=== PATIENT | female | born 1975 | race Caucasian/White ===

== ENCOUNTER 2018-03-14 18:00 | Observation (INO) | payer MEDICAID ==
[2018-03-14] MEDS ORDERED: Nitroglycerin 2% Oint 1 GM UD Packet TOP ONE (18:10)
[2018-03-14] MEDS ORDERED: Sodium Chloride 0.9% 5 ML Syringe FLUSH PRN ×2 (18:10→18:49)
[2018-03-14] MEDS ORDERED: Aspirin 81 MG Tab.Chew PO ONE (18:10)
--- NOTE | 2018-03-14 18:12 | EDM.PDOC ---
ED HPI GENERAL MEDICAL PROBLEM - General Chief Complaint: Cardiovascular Problem Stated Complaint: CHEST PAIN Time Seen by Provider: 03/14/18 18:09 Source of Information: Reports: Patient, EMS History Limitations: Reports: No Limitations - History of Present Illness INITIAL COMMENTS - FREE TEXT/NARRATIVE: 43 YO WF presents to ER by EMS with left sided chest pain with radiation to the back of her neck and left arm. Pt reports she has had episodic chest pain for approximately 4 years but has never had an evaluation by PCP. Pt reports approximately 1 hour ago she developed these symptoms prompting her to call EMS. Pt denies shortness of breath, dizziness, diaphoresis. Pt with associated nausea without vomiting. Pt is currently chest pain free. Pt states she smokes 1/2 PPD of tobacco. Pt denies any hormone replacement therapy or control. Pt unsure of family history of CAD. Onset: Today Onset Date: 03/14/18 Onset Time: 17:00 Location: Reports: Chest Quality: Reports: Ache Severity: Mild Improves with: Reports: None Worsens with: Reports: None Associated Symptoms: Reports: Chest Pain, Nausea/Vomiting. Denies: Fever/Chills , Shortness of Breath, Syncope Left Chest Pain Score (Numeric/FACES): 2 - Related Data Allergies Allergy/AdvReac Type Severity Reaction Status Date / Time No Known Allergies Allergy Verified 03/14/18 18:12 Home Meds: Home Meds Ibuprofen 200 mg PO ASDIRECTED PRN 03/14/18 [History] Naproxen 500 mg PO ASDIRECTED PRN 03/14/18 [History] ED ROS GENERAL - Review of Systems Review Of Systems: See Below Constitutional: Reports: No Symptoms HEENT: Reports: No Symptoms Respiratory: Reports: No Symptoms Cardiovascular: Reports: Chest Pain Endocrine: Reports: No Symptoms GI/Abdominal: Reports: Nausea : Reports: No Symptoms Musculoskeletal: Reports: No Symptoms Skin: Reports: No Symptoms Neurological: Reports: No Symptoms Psychiatric: Reports: No Symptoms Hematologic/Lymphatic: Reports: No Symptoms ED EXAM, GENERAL - Physical Exam Exam: See Below Exam Limited By: No Limitations General Appearance: Alert, WD/WN, No Apparent Distress Head: Atraumatic, Normocephalic Neck: Normal Inspection, Supple, Non-Tender, Full Range of Motion Respiratory/Chest: No Respiratory Distress, Lungs Clear, Normal Breath Sounds, No Accessory Muscle Use, Chest Non-Tender Cardiovascular: Normal Peripheral Pulses, Regular Rate, Rhythm, No Edema, No Gallop, No JVD, No Murmur, No Rub GI/Abdominal: Normal Bowel Sounds, Soft, Non-Tender, No Organomegaly, No Distention, No Abnormal Bruit, No Mass Back Exam: Normal Inspection, Full Range of Motion, NT Extremities: Normal Inspection, Normal Range of Motion, Non-Tender, Normal Capillary Refill, No Pedal Edema Neurological: Alert, Oriented, CN II-XII Intact, Normal Cognition, Normal Gait, Normal Reflexes, No Motor/Sensory Deficits Psychiatric: Normal Affect, Normal Mood Skin Exam: Warm, Dry, Intact, Normal Color, No Rash Lymphatic: No Adenopathy EKG INTERPRETATION EKG Date: 03/14/18 Time: 18:11 Rhythm: NSR Rate (Beats/Min): 90 Christopher: Normal P-Wave: Present QRS: Normal ST-T: Normal QT: Normal Comparison: NA - No Prior EKG Course - Vital Signs Last Recorded V/S: Last Vital Signs Temp 36.8 C 03/14/18 18:17 Pulse 87 03/14/18 18:38 Resp 16 03/14/18 18:38 BP 114/41 L 03/14/18 18:38 Pulse Ox 97 03/14/18 18:38 - Orders/Labs/Meds Orders: Active Orders 24 hr Category Date Time Status Cardiac Monitoring [RC] . DIRECTED Care 03/14/18 18:10 Active EKG Documentation Completion [RC] ASDIRECTED Care 03/14/18 18:10 Active Oxygen Therapy, ED [RC] ASDIRECTED Care 03/14/18 18:10 Active Peripheral IV Care [RC] . DIRECTED Care 03/14/18 18:10 Active Chest 1V Frontal [CR] Stat Exams 03/14/18 18:10 Taken Sodium Chloride 0.9% [Syrex Flush] Med 03/14/18 18:10 Active 5 ml FLUSH Q8HR PRN Peripheral IV Insertion Adult [OM.PC] Routine Oth 03/14/18 18:10 Ordered EKG 12 Lead [EK] Routine Ther 03/14/18 18:10 Ordered Medication Orders Sodium Chloride (Syrex Flush) 5 ml FLUSH Q8HR PRN PRN Reason: Keep Vein Open Labs: Laboratory Tests 03/14/18 03/14/18 03/14/18 Range/Units 18:05 18:05 18:05 WBC 11.3 H (5.0-10.0) 10^3/uL RBC 5.06 (3.80-5.50) 10^6/uL Hgb 15.3 (12.0-16.0) g/dL Hct 44.6 (37.0-47.0) % MCV 88.1 (82.0-92.0) fL MCH 30.3 (27.0-31.0) pg MCHC 34.4 (32.0-36.0) g/dL RDW 12.8 (11.5-14.5) % Plt Count 233 (150-300) 10^3/uL MPV 9.0 (7.4-10.4) fL Neut % (Auto) 49.3 L (50.0-70.0) % Lymph % (Auto) 40.0 (20.0-40.0) % Parker % (Auto) 6.4 (2.0-8.0) % Eos % (Auto) 3.6 H (1.0-3.0) % Baso % (Auto) 0.7 (0.0-1.0) % Neut # (Auto) 5.6 (2.5-7.0) 10^3/uL Lymph # (Auto) 4.5 H (1.0-4.0) 10^3/uL Parker # (Auto) 0.7 (0.1-0.8) 10^3/uL Eos # (Auto) 0.4 H (0.1-0.3) 10^3/uL Baso # (Auto) 0.1 (0.0-0.1) 10^3/uL PT 9.1 (8.9-11.4) SEC INR 0.9 (0.9-1.1) APTT 23.9 (20.8-31.2) SEC Sodium 141 (136-145) mmol/L Potassium 3.8 (3.3-5.3) mmol/L Chloride 105 (98-115) mmol/L Carbon Dioxide 21.3 (21.0-32.0) mmol/L BUN 16 (6-25) mg/dL Creatinine 0.96 (0.51-1.17) mg/dL Est Cr Clr Drug Dosing 66.59 mL/min Estimated GFR (MDRD) > 60 mL/min Glucose 117 H (70-110) mg/dL Calcium 9.2 (8.7-10.3) mg/dL Total Bilirubin 0.3 (0.2-1.0) mg/dL AST 21 (15-37) U/L ALT 24 (12-78) U/L Alkaline Phosphatase 61 (46-116) IU/L Creatine Kinase 116 (26-276) U/L CK-MB (CK-2) 0.80 (0.00-4.30) ng/mL Troponin I < 0.04 (0.00-0.070) ng/mL Total Protein 7.6 (6.4-8.2) g/dL Albumin 4.28 (3.00-4.80) g/dL Meds: Medications Generic Name Dose Route Start Last Admin Trade Name Freq PRN Reason Stop Dose Admin Sodium Chloride 5 ml 03/14/18 18:10 Syrex Flush FLUSH Q8HR PRN Keep Vein Open Discontinued Medications Generic Name Dose Route Start Last Admin Trade Name Freq PRN Reason Stop Dose Admin Aspirin 324 mg 03/14/18 18:10 03/14/18 18:37 Aspirin PO 03/14/18 18:11 Not Given ONETIME ONE Nitroglycerin 1 gm 03/14/18 18:10 03/14/18 18:18 Nitro-Bid 2% TOP 03/14/18 18:11 1 gm ONETIME ONE Administration Departure - Departure Time of Disposition: 18:48 Disposition: Refer to Observation Condition: Good Clinical Impression: Chest pain Qualifiers: Chest pain type: unspecified Qualified Code(s): R07.9 - Chest pain, unspecified Forms: ED Department Discharge - My Orders Last 24 Hours: My Active Orders 03/14/18 18:10 Cardiac Monitoring [RC] . DIRECTED EKG Documentation Completion [RC] ASDIRECTED Oxygen Therapy, ED [RC] ASDIRECTED Peripheral IV Care [RC] . DIRECTED Chest 1V Frontal [CR] Stat Sodium Chloride 0.9% [Syrex Flush] 5 ml FLUSH Q8HR PRN Peripheral IV Insertion Adult [OM.PC] Routine EKG 12 Lead [EK] Routine - Assessment/Plan Last 24 Hours: My Active Orders 03/14/18 18:10 Cardiac Monitoring [RC] . DIRECTED EKG Documentation Completion [RC] ASDIRECTED Oxygen Therapy, ED [RC] ASDIRECTED Peripheral IV Care [RC] . DIRECTED Chest 1V Frontal [CR] Stat Sodium Chloride 0.9% [Syrex Flush] 5 ml FLUSH Q8HR PRN Peripheral IV Insertion Adult [OM.PC] Routine EKG 12 Lead [EK] Routine Assessment:: 1. Chest pain Plan: 1. admit for obs- Aleshia Marcelino 2. nitro/ASA 3. serial trop I Q6 x 3 4. supportive care
[2018-03-14 18:42] LABS: CHLORIDE,CL 105 mmol/L (98-115); SODIUM,NA 141 mmol/L (136-145)
[2018-03-14] MEDS ORDERED: Ondansetron 4 MG/2 ML SDV IV PRN (18:49)
[2018-03-14] MEDS ORDERED: Ibuprofen 600 MG Tab PO PRN (18:49)
[2018-03-14] MEDS ORDERED: Nitroglycerin 2% Oint 1 GM UD Packet TOP PRN (18:52)
[2018-03-14] MEDS: Nicotine 14 MG/24 Hr Patch TRDERM SCH (19:30)
[2018-03-14] MEDS ORDERED: Atropine 0.1 MG/ML 10 ML Syringe IVPUSH PRN (20:46)
[2018-03-14] MEDS ORDERED: Nitroglycerin 0.4 MG Tab.SL SL PRN (20:46)
[2018-03-14] MEDS ORDERED: Lidocaine 2% 100 MG/5 ML Syringe IVPUSH PRN (20:46)
[2018-03-14] MEDS ORDERED: EPINEPHrine 1:10,000 1 MG/10 ML Syringe IVPUSH PRN (20:46)
[2018-03-15] MEDS: Nicotine 14 MG/24 Hr Patch TRDERM SCH (08:17)
[2018-03-15] MEDS ORDERED: Aspirin 325 MG Tab.EC PO SCH (09:00)
--- NOTE | 2018-03-15 09:42 | PCM.HP ---
H&P History of Present Illness - General Date of Service: 03/15/18 Admit Problem/Dx: Admission Diagnosis/Problem Admission Diagnosis/Problem Chest pain Source of Information: Patient, EMS Notes Reviewed, RN History Limitations: Reports: No Limitations - History of Present Illness Initial Comments - Free Text/Narative: This 43-year-old female was admitted overnight through the ED via EMS due to left-sided chest pain which radiated to the back of her neck and down her left arm. Patient stated last night she was eating supper and she noticed her left- sided chest pain. She states this has happened multiple times over the past 4 years however normally and only lasts up to 2 minutes and then resolve spontaneously however this time it seemed to be quite progressive. She notified EMS, after glycerin was given in route which made her blood pressure rise. She had no shortness of breath diaphoresis or lightheadedness did become slightly nauseated without vomiting. When she arrived in the ED she no longer had chest pain. He was admitted into observation overnight was given aspirin and nitroglycerin and telemetry monitoring. 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 She states her last lipids were approximately 2-3 years ago and they were normal. Left Chest Pain Score (Numeric/FACES): 2 - Related Data Allergies/Adverse Reactions: Allergies Allergy/AdvReac Type Severity Reaction Status Date / Time No Known Allergies Allergy Verified 03/14/18 18:12 Home Medications: Home Meds Ibuprofen 200 mg PO ASDIRECTED PRN 03/14/18 [History] Naproxen 500 mg PO ASDIRECTED PRN 03/14/18 [History] Diclofenac Sodium [Voltaren] 100 gm TP Q6H PRN #1 gel..gram. 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) Other OB/BYN History: 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 Musculoskeletal History: Reports: Osteoarthritis Endocrine/Metabolic History: Reports: Obesity/BMI 30+ Hematologic History: Reports: Anemia, Blood Transfusion(s) - Infectious Disease History Infectious Disease History: Reports: Chicken Pox, Influenza, Shingles - Past Surgical History GI Surgical History: Reports: Cholecystectomy Social & Family History - Family History HEENT: Reports: None Cardiac: Reports: None Respiratory: Reports: None GI: Reports: None : Reports: None OBGYN: Reports: None Musculoskeletal: Reports: None Neurological: Reports: None Psychiatric: Reports: None Endocrine/Metabolic: Reports: None Hematologic: Reports: None Immunologic: Reports: None Dermatologic: Reports: None Oncologic: Reports: None, Colon (Father 3 years ago colon cancer), Other ( See Below) - Tobacco Use Smoking Status *Q: Former Smoker Years of Tobacco use: 30 Packs/Tins Daily: 0.5 Used Tobacco, but Quit: No Second Hand Smoke Exposure: Yes - Caffeine Use Caffeine Use: Reports: Coffee, Soda, Tea Caffeine Use Comment: uses quite a bit - Recreational Drug Use Recreational Drug Use: No H&P Review of Systems - Review of Systems: Review Of Systems: See Below General: Reports: No Symptoms HEENT: Reports: No Symptoms Pulmonary: Reports: No Symptoms Cardiovascular: Reports: No Symptoms Gastrointestinal: Reports: No Symptoms Genitourinary: Reports: No Symptoms Musculoskeletal: Reports: Neck Pain, Shoulder Pain, Arm Pain, Muscle Stiffness. Denies: Hand Pain, Leg Pain, Muscle Pain Skin: Reports: No Symptoms Psychiatric: Reports: No Symptoms Neurological: Reports: Tingling. Denies: Confusion, Pre-Existing Deficit, Trouble Speaking, Weakness, Change in Speech Hematologic/Lymphatic: Reports: No Symptoms Immunologic: Reports: No Symptoms Exam - Exam Exam: See Below - Vital Signs Vital Signs: Last Vital Signs Temp 98.6 F 03/15/18 06:00 Pulse 75 03/15/18 06:00 Resp 18 03/15/18 06:00 BP 91/51 L 03/15/18 06:00 Pulse Ox 95 03/15/18 06:00 Weight: 185 lb - Exam Quality Assessment: No: Supplemental Oxygen General: Alert, Oriented, 4 HEENT: PERRLA, Hearing Intact, Mucosa Moist & [place], Nares Patent, Normal Nasal Septum, Posterior Pharynx Clear, Conjunctiva Clear, EOMI, EACs Clear, TMs Clear Neck: Supple, Trachea Midline, 2 Lungs: Clear to Auscultation, Normal Respiratory Effort Cardiovascular: Regular Rate, Regular Rhythm GI/Abdominal Exam: Soft (Female) Exam: Deferred Back Exam: Muscle Spasm (: Muscle spasm), Paraspinal Tenderness. No: CVA Tenderness (L), CVA Tenderness (R) Extremities: No Pedal Edema Peripheral Pulses: 2+: Radial (L), Radial (R) Skin: Warm, Dry, Intact Neurological: Normal Speech, Sensation Intact. No: Focal Deficit Neuro Extensive - Mental Status: Alert, Oriented x3, Normal Mood/Affect, Normal Cognition Neuro Extensive - Motor, Sensory, Reflexes: CN II-XII Intact Psychiatric: Alert, Normal Mood. No: Anxious - Patient Data Lab Results Last 24 hrs: Laboratory Results - last 24 hr 03/14/18 03/14/18 03/14/18 Range/Units 18:05 18:05 18:05 WBC 11.3 H (5.0-10.0) 10^3/uL RBC 5.06 (3.80-5.50) 10^6/uL Hgb 15.3 (12.0-16.0) g/dL Hct 44.6 (37.0-47.0) % MCV 88.1 (82.0-92.0) fL MCH 30.3 (27.0-31.0) pg MCHC 34.4 (32.0-36.0) g/dL RDW 12.8 (11.5-14.5) % Plt Count 233 (150-300) 10^3/uL MPV 9.0 (7.4-10.4) fL Neut % (Auto) 49.3 L (50.0-70.0) % Lymph % (Auto) 40.0 (20.0-40.0) % [place] % (Auto) 6.4 (2.0-8.0) % Eos % (Auto) 3.6 H (1.0-3.0) % Baso % (Auto) 0.7 (0.0-1.0) % Neut # (Auto) 5.6 (2.5-7.0) 10^3/uL Lymph # (Auto) 4.5 H (1.0-4.0) 10^3/uL [place] # (Auto) 0.7 (0.1-0.8) 10^3/uL Eos # (Auto) 0.4 H (0.1-0.3) 10^3/uL Baso # (Auto) 0.1 (0.0-0.1) 10^3/uL PT 9.1 (8.9-11.4) SEC INR 0.9 (0.9-1.1) APTT 23.9 (20.8-31.2) SEC Sodium 141 (136-145) mmol/L Potassium 3.8 (3.3-5.3) mmol/L Chloride 105 (98-115) mmol/L Carbon Dioxide 21.3 (21.0-32.0) mmol/L BUN 16 (6-25) mg/dL Creatinine 0.96 (0.51-1.17) mg/dL Est Cr Clr Drug Dosing 66.59 mL/min Estimated GFR (MDRD) > 60 mL/min Glucose 117 H (70-110) mg/dL Calcium 9.2 (8.7-10.3) mg/dL Total Bilirubin 0.3 (0.2-1.0) mg/dL AST 21 (15-37) U/L ALT 24 (12-78) U/L Alkaline Phosphatase 61 (46-116) IU/L Creatine Kinase 116 (26-276) U/L CK-MB (CK-2) 0.80 (0.00-4.30) ng/mL Troponin I < 0.04 (0.00-0.070) ng/mL Total Protein 7.6 (6.4-8.2) g/dL Albumin 4.28 (3.00-4.80) g/dL 03/15/18 03/15/18 Range/Units 00:05 07:05 WBC 7.9 (5.0-10.0) 10^3/uL RBC 4.73 (3.80-5.50) 10^6/uL Hgb 13.8 D (12.0-16.0) g/dL Hct 40.8 (37.0-47.0) % MCV 86.1 (82.0-92.0) fL MCH 29.2 (27.0-31.0) pg MCHC 33.9 (32.0-36.0) g/dL RDW 13.0 (11.5-14.5) % Plt Count 204 (150-300) 10^3/uL MPV 9.0 (7.4-10.4) fL Neut % (Auto) 55.7 (50.0-70.0) % Lymph % (Auto) 30.9 (20.0-40.0) % [place] % (Auto) 8.7 H (2.0-8.0) % Eos % (Auto) 4.1 H (1.0-3.0) % Baso % (Auto) 0.6 (0.0-1.0) % Neut # (Auto) 4.5 (2.5-7.0) 10^3/uL Lymph # (Auto) 2.4 (1.0-4.0) 10^3/uL [place] # (Auto) 0.7 (0.1-0.8) 10^3/uL Eos # (Auto) 0.3 (0.1-0.3) 10^3/uL Baso # (Auto) 0.0 (0.0-0.1) 10^3/uL PT (8.9-11.4) SEC INR (0.9-1.1) APTT (20.8-31.2) SEC Sodium (136-145) mmol/L Potassium (3.3-5.3) mmol/L Chloride (98-115) mmol/L Carbon Dioxide (21.0-32.0) mmol/L BUN (6-25) mg/dL Creatinine (0.51-1.17) mg/dL Est Cr Clr Drug Dosing mL/min Estimated GFR (MDRD) mL/min Glucose (70-110) mg/dL Calcium (8.7-10.3) mg/dL Total Bilirubin (0.2-1.0) mg/dL AST (15-37) U/L ALT (12-78) U/L Alkaline Phosphatase (46-116) IU/L Creatine Kinase (26-276) U/L CK-MB (CK-2) (0.00-4.30) ng/mL Troponin I < 0.04 (0.00-0.070) ng/mL Total Protein (6.4-8.2) g/dL Albumin (3.00-4.80) g/dL Result Diagrams: 03/15/18 07:05 03/14/18 18:05 EKG INTERPRETATION Rhythm: NSR P-Wave: Present QRS: Normal ST-T: Normal QT: Normal Comparison: NA - No Prior EKG Problem List Initiated/Reviewed/Updated: Yes Orders Last 24hrs: Active Orders 24 hr Category Date Time Status Patient Status [ADT] Routine ADT 03/14/18 18:50 Ordered Bedrest Bathroom Privileges [RC] ASDIRECTED Care 03/14/18 18:49 Active Cardiac Monitoring [RC] 2300,0300,0700,1100,1500,1900 Care 03/14/18 18:10 Active Oxygen Therapy [RC] PRN Care 03/14/18 18:50 Active Pulse Oximetry [RC] CONTINUOUS Care 03/14/18 18:50 Active VTE/DVT Education [RC] PER UNIT ROUTINE Care 03/14/18 18:50 Active Vital Signs [RC] Q4H Care 03/14/18 18:50 Active 2 Gram Sodium Diet [DIET] Diet 03/14/18 Dinner Active BASIC METABOLIC PANEL,BMP [CHEM] AM Lab 03/15/18 07:05 Received MAGNESIUM [CHEM] AM Lab 03/15/18 07:05 Received TROPONIN I [CHEM] AM Lab 03/15/18 07:05 Received Aspirin [Ecotrin] Med 03/15/18 09:00 Active 325 mg PO DAILY Atropine [Atropine 0.1 MG/ML] Med 03/14/18 20:46 Active 0 mg IVPUSH ASDIRECTED PRN EPINEPHrine [EPINEPHrine 1:10,000] Med 03/14/18 20:46 Active 1 mg IVPUSH ASDIRECTED PRN Ibuprofen [Motrin] Med 03/14/18 18:49 Active 600 mg PO Q6H PRN Lidocaine 2% [Xylocaine 2%] Med 03/14/18 20:46 Active 0 mg IVPUSH ASDIRECTED PRN Nicotine [Habitrol] Med 03/14/18 19:00 Active 14 mg TRDERM DAILY Nitroglycerin [Nitro-Bid 2%] Med 03/14/18 18:52 Active 1 gm TOP Q6H PRN Nitroglycerin [Nitrostat] Med 03/14/18 20:46 Active 0.4 mg SL ASDIRECTED PRN Ondansetron [Zofran] Med 03/14/18 18:49 Active 4 mg IV Q6H PRN Sodium Chloride 0.9% [Syrex Flush] Med 03/14/18 18:49 Active 5 ml FLUSH Q8HR PRN Saline Lock Insert [OM.PC] Routine Oth 03/14/18 18:49 Ordered Resuscitation Status Routine Resus Stat 03/14/18 18:49 Ordered EKG 12 Lead [EK] Routine Ther 03/14/18 18:10 Stop Req Medication Orders Aspirin (Ecotrin) 325 mg PO DAILY [facility] Last Admin: 03/15/18 08:17 Dose: 325 mg Atropine Sulfate (Atropine 0.1 Mg/Ml) 0 mg IVPUSH ASDIRECTED PRN PRN Reason: Heart Epinephrine HCl (Epinephrine 1:10,000) 1 mg IVPUSH ASDIRECTED PRN PRN Reason: Heart Ibuprofen (Motrin) 600 mg PO Q6H PRN PRN Reason: Pain (mild 1-3) Lidocaine HCl (Xylocaine 2%) 0 mg IVPUSH ASDIRECTED PRN PRN Reason: Heart Nicotine (Habitrol) 14 mg TRDERM DAILY [facility] Last Admin: 03/15/18 08:17 Dose: Not Given Admin: 03/14/18 19:30 Dose: Not Given Nitroglycerin (Nitro-Bid 2%) 1 gm TOP Q6H PRN PRN Reason: Chest Pain Nitroglycerin (Nitrostat) 0.4 mg SL ASDIRECTED PRN PRN Reason: Heart Ondansetron HCl (Zofran) 4 mg IV Q6H PRN PRN Reason: Nausea/Vomiting Sodium Chloride (Syrex Flush) 5 ml FLUSH Q8HR PRN PRN Reason: Keep Vein Open Assessment/Plan Comment:: HISTORY OF PRESENT ILLNESS This 43-year-old female was admitted overnight through the ED via EMS due to left-sided chest pain which radiated to the back of her neck and down her left arm. Patient stated last night she was eating supper and she noticed her left- sided chest pain. She states this has happened multiple times over the past 4 years however normally and only lasts up to 2 minutes and then resolve spontaneously however this time it seemed to be quite progressive. She notified EMS, after glycerin was given in route which made her blood pressure rise. She had no shortness of breath diaphoresis or lightheadedness did become slightly nauseated without vomiting. When she arrived in the ED she no longer had chest pain. He was admitted into observation overnight was given aspirin and nitroglycerin and telemetry monitoring. 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 She states her last lipids were approximately 2-3 years ago and they were normal. Does have a history of significant osteoarthritis in her neck , lumbar with degenerative disc disease history, knees etc. She does smoke one half pack per day Pertinent ED workup EKG NSR no ST morphology rate 90 Initial troponins normal Chest pain-free BP 98/49 White count 11.3 Chest x-ray clear Primary impression Rule out myocardial infarction, this has been ruled out Likely cervical pathology Tobacco dependency Modifiable risk factors Obesity Smoking cessation Disposition, patient will be discharged from the hospital and will follow-up as outpatient, will need cervical neck series, not to return to work until follow- up, report any further pain, tramadol and NSAIDs for now low dose.
[2018-03-15 14:34] LABS: CHLORIDE,CL 109
[2018-03-15 14:36] LABS: SODIUM,NA 138
--- NOTE | 2018-03-16 12:49 | DISCH ---
The patient was admitted to observation last night 03/14/2018, discharged from observation today 03/15/2018. FINAL DIAGNOSES: Rule out myocardial infarction, this has been ruled out; cervical neck pathology; tobacco dependency; obesity; significant osteoarthritis, multiple joints; and degenerative disk disease. HISTORY: This is a 43-year-old female, she was admitted overnight through the ED via EMS due to left-sided chest pain which radiated to the back of her neck and down her left arm. She stated last night she was eating supper and she had noticed a left-sided chest pain. This has happened multiple times over the past four years. Never really been worked up, however, normally she says her pain only lasts 2 minutes and resolved spontaneously. However, last night, it seemed to be quite progressive and this does not resolve. She notified EMS. Nitroglycerin was given en route, which made her blood pressure rise. By the time she got to the ED, she was chest pain free. She had no shortness of breath. No diaphoresis. No lightheadedness. However, she did become slightly nauseated. No vomiting. She was admitted overnight observation, was given aspirin, nitroglycerin. court recording monitor. She normally doctors with [facility] in [place]. Her last lipids per report were about two to three years ago, and they were normal. She does smoke about half a pack cigarettes per day. She is a [employer]. 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 Pertinent ED workup include EKG which showed normal sinus rhythm, no ST morphology. Heart rate 90. Initial troponins were negative. She was chest pain free. Blood pressure about 100 systolically. White count was 11.3, no neutrophilia, no bandemia. Her chest x-ray was clear. HOSPITAL COURSE: Hospital course was brief and terse without event. She was found on the floor this morning, but she did not fall. She stated she has lot of neck and back pain history, so she was stretching. Troponins were monitored x2. They were normal. Her white count was now 7.9, no neutrophilia. INR 0.9. Electrolytes were normal. No liver enzymes elevation. Normal troponin x2. She had no ectopy throughout the night. No chest pain. She is obese. Temperature on discharge 98.6, blood pressure 91/51, heart rate 75, and O2 sats 95% on room air. PHYSICAL EXAMINATION: GENERAL: On discharge, the patient is alert and oriented. No cervical neck muscles tensed, does have spasm there. Does have some slight tingling down her left arm, however, no weakness. Mild midline paraspinal tenderness, lower lumbar. Negative SLR. Slightly tender around AC. Negative Rios. Cervical neck; left and right rotation normal, however, slightly tender. LUNGS: Clear to auscultation. CV: S1, S2. No S3. PMI second intercostal space, midclavicular line. EXTREMITIES: Lower extremities; no edema. Anterior chest wall noticed nitroglycerin patch. This was removed. VITAL SIGNS: Blood pressure 90, however asymptomatic. No dizziness. MEDICATION CHANGES AND ADJUSTMENTS: Voltaren gel q.6 hours p.r.n. cervical neck, tramadol 50 mg every 6 hours p.r.n. for pain. She can continue with NSAIDs orally. No aspirin given. DISPOSITION: The patient will be discharged from the hospital. She will follow up as outpatient. Recommend cervical neck series. Doubtful, she will need other cardiac workup. She is not to return to work until followup, low-dose tramadol was given for her along with NSAID cream. Touched with her about modifiable risk factors including obesity and smoking cessation. Likely will need cervical neck series, lipids, and thyroid assessment. The patient is to report any further ongoing chest pain, likely cervical pathology. This will need to be followed up after her cervical neck series. /[id number]/MODL
== END 2018-03-15 10:30 | disposition home or self-care (01) ==
LOC: KA.ED 18:00 → KA.MS 18:49
PROVIDERS: ADMIT Physician Assistant Medical; ATTEND Physician Assistant Medical
DX: R07.9 Chest pain, unspecified (principal); E66.9 Obesity, unspecified; M15.3 Secondary multiple arthritis; F17.200 Nicotine dependence, unspecified, uncomplicated; Z90.710 Acquired absence of both cervix and uterus; Z68.30 Body mass index [BMI] 30.0-30.9, adult; Z90.49 Acquired absence of other specified parts of digestive tract
CPT/HCPCS: 36415; 71045; 80048; 80053; 82550; 82553; 83735; 84484; 85025; 85610; 85730; 93005; 99285; A9270-GY; G0378

== ENCOUNTER 2019-01-21 11:40 | Emergency (ER) | payer BC, MEDICAID ==
--- NOTE | 2019-01-21 13:08 | CR ---
[id number] RAD/RAD Shoulder Left 2V Min EXAM: LEFT SHOULDER 3 VIEWS INDICATION: Shoulder pain. COMPARISON: None. DISCUSSION: Mild acromioclavicular and glenohumeral osteoarthritis. No acute fracture, dislocation or other osseous abnormality is identified. IMPRESSION: 1. Mild osteoarthritis. Rome East MD 01/21/19 [id number] Thank you for allowing us to participate in the care of your patient.
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
[2019-01-21] MEDS: Ketorolac 60 MG/2 ML SDV IM ONE (13:20)
[2019-01-21] MEDS: Cyclobenzaprine 10 MG Tab PO ONE (13:21)
== END 2019-01-21 13:35 | disposition home or self-care (01) ==
LOC: KA.ED 11:40
DX: S46.812A Strain of other muscles, fascia and tendons at shoulder and upper arm level, left arm, initial encounter (principal); F17.210 Nicotine dependence, cigarettes, uncomplicated; Y99.0 Civilian activity done for income or pay
CPT/HCPCS: 73030-LT; 80305-QW; 96372; 99283-25; A9270-GY; J1885

== ENCOUNTER 2019-02-22 23:35 | Emergency (ER) | payer BC, MEDICAID ==
[2019-02-22] MEDS ORDERED: Sodium Chloride 0.9% 10 ML Syringe FLUSH PRN (23:51)
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
[2019-02-23] MEDS ORDERED: Ondansetron 4 MG/2 ML SDV IVPUSH ONE (00:01)
[2019-02-23] MEDS ORDERED: Ketorolac 30 MG/ML SDV IVPUSH ONE (00:01)
[2019-02-23] MEDS ORDERED: Iopamidol 755 Mg/ML 75 ML Bottle IVPUSH ONE (00:12)
[2019-02-23] MEDS ORDERED: Sodium Chloride 0.9% 50 ML IV SCH (00:15)
[2019-02-23 00:16] LABS: ANION GAP 14.9 mmol/L (5-15); CHLORIDE,CL 104 mmol/L (98-115); SODIUM,NA 139 mmol/L (136-145)
[2019-02-23] MEDS ORDERED: Morphine 4 MG/ML Syringe IVPUSH ONE (00:56)
[2019-02-23] MEDS ORDERED: cefTRIAXone 1 GM Vial IVPUSH ONE (00:56)
[2019-02-23] MEDS ORDERED: Phenazopyridine 100 MG Tab PO ONE (01:30)
--- NOTE | 2019-02-23 07:38 | CT ---
[id number] CT/CT Abdomen Pelvis W IV EXAM: CT Abdomen Pelvis W IV CLINICAL DATA: ABDOMINAL PAIN COMPARISON: CORRELATION IS MADE WITH THE CAT SCAN OF AUGUST 26, 2008. FINDINGS: There is no evidence of appendicitis. The appendix appears normal. The urinary bladder is distended. The gallbladder has been removed. There are tiny hepatic cysts. The pelvis shows no mass or adenopathy. There is no bowel distention, free fluid, or free air. The adrenals, aorta, kidneys, liver, spleen otherwise unremarkable. IMPRESSION: NO ACUTE PROCESS. Sanya Carl MD 02/23/19 0738 Thank you for allowing us to participate in the care of your patient.
== END 2019-02-23 01:30 | disposition home or self-care (01) ==
LOC: KA.ED 23:35
DX: N30.00 Acute cystitis without hematuria (principal); Z90.710 Acquired absence of both cervix and uterus; Z86.2 Personal history of diseases of the blood and blood-forming organs and certain disorders involving the immune mechanism; Z90.49 Acquired absence of other specified parts of digestive tract; Z98.51 Tubal ligation status
CPT/HCPCS: 36415; 74177; 80053; 81001; 83690; 84703; 85025; 87086; 96374; 96375; 99284-25; A9270-GY; J0696; J1885; J2270; J2405; J7050; Q9967

== ENCOUNTER 2019-10-05 16:48 | Emergency (ER) | payer BC, MEDICAID ==
--- NOTE | 2019-10-05 17:48 | CR ---
[id number] RAD/RAD Ankle Left 3V Min EXAM: RAD Ankle Left 3V Min CLINICAL DATA: TRAUMA COMPARISON: NO PREVIOUS SIMILAR EXAM IS AVAILABLE. FINDINGS: No fracture or dislocation is seen. There is no radiopaque foreign body in the soft tissues. There is no air in the soft tissues. There is no cortical thickening or periosteal reaction either. IMPRESSION: NEGATIVE PLAIN FILM EXAM. Sanya Carl MD 10/05/19 2160 Thank you for allowing us to participate in the care of your patient.
--- NOTE | 2019-10-05 17:48 | CR ---
[id number] RAD/RAD Foot Left 3V Min EXAM: RAD Foot Left 3V Min CLINICAL DATA: TRAUMA COMPARISON: NO PREVIOUS SIMILAR EXAM IS AVAILABLE. FINDINGS: There is question of a subtle fracture involving the distal aspect of the left second proximal phalanx Clinical correlation would be helpful to know where the patient has pain Otherwise there is no evidence of fracture or dislocation. IMPRESSION: QUESTION OF SUBTLE FRACTURE INVOLVING LEFT SECOND PROXIMAL PHALANX Sanya Carl MD 10/05/19 2448 Thank you for allowing us to participate in the care of your patient.
--- NOTE | 2019-10-05 17:51 | CR ---
[id number] RAD/RAD Lumbar Spine 2-3V EXAM: AP AND LATERAL LUMBAR SPINE. INDICATION: Trauma COMPARISON: Correlation is made with the exam of February 15, 2009 FINDINGS: Pre-existing degenerative changes and minimal compression deformities are seen There is no new acute fracture or subluxation IMPRESSION: NO NEW FINDINGS Sanya Carl MD 10/05/19 [id number] Thank you for allowing us to participate in the care of your patient.
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
== END 2019-10-05 18:20 | disposition home or self-care (01) ==
LOC: KA.ED 16:48
DX: S92.512A Displaced fracture of proximal phalanx of left lesser toe(s), initial encounter for closed fracture (principal); W10.9XXA Fall (on) (from) unspecified stairs and steps, initial encounter; Y92.009 Unspecified place in unspecified non-institutional (private) residence as the place of occurrence of the external cause
CPT/HCPCS: 72100; 73610-LT; 73630-LT; 99283-25

== ENCOUNTER 2021-03-25 14:57 | Emergency (ER) | payer MEDICAID, OTHER ==
[2021-03-25] MEDS ORDERED: Sodium Chloride 0.9% 10 ML Syringe FLUSH PRN (15:08)
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
--- NOTE | 2021-03-25 15:34 | CR ---
[id number] RAD/RAD Chest PA And Lateral EXAM: RAD Chest PA And Lateral INDICATION: PAIN. COMPARISON: February 2018. DISCUSSION/IMPRESSION: Cardiomediastinal silhouette is normal in size and contour. Lungs are clear. No pleural effusion or pneumothorax. Guille Wilson MD 03/25/21 [id number] Thank you for allowing us to participate in the care of your patient.
[2021-03-25] MEDS: Acetaminophen 500 MG Tab PO ONE (15:35)
[2021-03-25] MEDS: Nitroglycerin 2% Oint 1 GM UD Packet TOP ONE (15:36)
[2021-03-25 15:39] LABS: ANION GAP 14.2 mmol/L (5-15); CHLORIDE,CL 102 mmol/L (98-107); SODIUM,NA 139 mmol/L (136-145)
== END 2021-03-25 18:35 | disposition home or self-care (01) ==
LOC: KA.ED 14:57
DX: R07.89 Other chest pain (principal); R07.2 Precordial pain; Z72.0 Tobacco use
CPT/HCPCS: 36415; 71046; 80053; 82550; 82553; 84484; 85025; 93005; 99284; 99285-25; A9270-GY